=== PATIENT | male | born 1960 | race Caucasian/White ===

== ENCOUNTER 2017-04-10 12:32 | Day surgery (SDC) | payer OTHER ==
[2017-04-10] MEDS ORDERED: LACTATED RINGERS 1,000 ML IV ONE (12:44)
[2017-04-10] MEDS ORDERED: MIDAZOLAM 2 MG/2 ML VIAL IVP ONE (13:43)
[2017-04-10] MEDS ORDERED: fentaNYL 100 MCG/2 ML VIAL IVP ONE (13:43)
[2017-04-10 14:43] VITALS: BP 115/70
--- NOTE | 2017-04-11 14:44 | PROCEDURE REPORT ---
DATE OF SERVICE: 04/10/2017 Physician: Will Rivera MD PROCEDURE PERFORMED: Colonoscopy. ENDOSCOPIST: Will Rivera MD PRIMARY CARE: Julisa Ordonez NP INDICATION: Patient with a diagnosis of a history of polyps, though patient actually denies this on last colonoscopy. He also reports mild anemia. PREMEDICATIONS 1. Fentanyl 100 mcg. 2. Versed 7 mg IV titration. PROCEDURE: After informed consent was obtained, the patient was placed in left lateral decubitus position. The video colonoscope was introduced to the rectum and slowly advanced to cecum. Preparation was good. On slow withdrawal, mucosa was carefully examined. The scope was removed. Patient tolerated the procedure well. BLOOD LOSS: None. COMPLICATIONS: None. FINDINGS 1. Normal colonoscopy to cecum. 2. If in fact the patient does have a history of polyps, then he should have followup colonoscopy in 5 years. Likewise, if he has had anemia, then upper endoscopy might be warranted to rule out an upper tract lesion. cc: Julisa Ordonez NP TD: 04/10/2017 18:49
== END 2017-04-10 12:33 | disposition home or self-care (01) ==
LOC: SDS 12:32
PROVIDERS: ATTEND Internal Medicine Gastroenterology
PROC: 0DJD8ZZ Inspection of Lower Intestinal Tract, Via Natural or Artificial Opening Endoscopic (ICD-10-PCS; principal; 2017-04-10 13:30)
DX: Z12.11 Encounter for screening for malignant neoplasm of colon (principal); Z86.010 Personal history of colon polyps; D64.9 Anemia, unspecified
CPT/HCPCS: 45378; J7120

== ENCOUNTER 2020-03-30 08:04 | Emergency (ER) | payer OTHER ==
[2020-03-30] MEDS ORDERED: BUFFERED LIDOCAINE 10 ML SYRINGE IU ONE (10:12)
[2020-03-30] MEDS ORDERED: BACITRACIN ZINC OINT 1 PACKET TOP STA (10:24)
[2020-03-30] MEDS ORDERED: TETANUS/DIPHTHERIA/PERTUSSIS 0.5 ML SYRINGE IM ONE (10:24)
--- NOTE | 2020-03-30 10:27 | ED Physician Documentation ---
History of Present Illness - Stated complaint Stated Complaint: LT HAND INJ - Chief complaint Chief Complaint: Laceration - History obtained from History obtained from: Patient - Additonal information Additional information: Patient comes emergency department chief complaint of hand injury at work. Patient states he was pushing a large metal cage and that his hand scraped against the wall and this happened. It was his left hand, and patient states it was bleeding quite a lot. He states his boss made him come to the emergency department to get checked out. Patient denies any other complaints at this time. The bleeding is stopped, and patient has full range of motion of his fingers, he states. He denies any numbness or tingling. No other injuries. No other complaints at this time Review of Systems Ten Systems: 10 systems reviewed and negative Constitutional: reports: Reviewed and negative Eyes: reports: Reviewed and negative Ears: reports: Reviewed and negative Nose: reports: Reviewed and negative Throat: reports: Reviewed and negative Cardiac: reports: Reviewed and negative Respiratory: reports: Reviewed and negative GI: reports: Reviewed and negative : reports: Reviewed and negative Skin: reports: Laceration (s), Reviewed and negative Musculoskeletal: reports: Reviewed and negative Neurologic: reports: Reviewed and negative Psychiatric: reports: Reviewed and negative Endocrine: reports: Reviewed and negative Immunocompromised: reports: Reviewed and negative PD PAST MEDICAL HISTORY - Past Medical History Cardiovascular: None Endocrine/Autoimmune: None GI: None : Other HEENT: None Psych: None Musculoskeletal: None Derm: None Other Past Medical History: high PSA labs - Past Surgical History Past Surgical History: No General: Colonoscopy - Present Medications Home Medications: Ambulatory Orders Medication Instructions Recorded Confirmed Alfuzosin HCl [Uroxatral] 10 mg PO DAILY PRN 04/09/17 04/10/17 Cholecalciferol (Vitamin D3) 1,000 unit PO DAILY 04/09/17 04/10/17 [Vitamin D3] Multivitamin [Multivitamins] 1 each PO DAILY 04/09/17 04/10/17 - Allergies Allergies/Adverse Reactions: Allergies Allergy/AdvReac Type Severity Reaction Status Date / Time No Known Drug Allergies Allergy Verified 03/30/20 08:22 - Social History Does the pt smoke?: No Smoking Status: Never smoker Does the pt drink ETOH?: Yes Does the pt have substance abuse?: No - Immunizations Immunizations are current?: Yes PD ED PE NORMAL - Vitals Vital signs reviewed: Yes - General General: Alert and oriented X 3, No acute distress, Well developed/nourished - HEENT HEENT: Atraumatic, PERRL, EOMI, Moist mucous membranes - Neck Neck: Supple, no meningeal sign - Cardiac Cardiac: Strong equal pulses - Respiratory Respiratory: No respiratory distress - Derm Derm: Normal color, Warm and dry, Other (3 cm x 1 cm skin avulsion over the dorsum of left hand. No active bleeding. No foreign body.) - Extremities Extremities: No deformity, No tenderness to palpate, Normal ROM s pain, No edema - Neuro Neuro: Alert and oriented X 3, No motor deficit, No sensory deficit - Psych Psych: Normal mood, Normal affect Results - Vitals Vitals: Vital Signs - 24 hr 03/30/20 08:18 Temperature 36.4 C L Heart Rate 64 Respiratory 16 Rate Blood Pressure 140/74 H O2 Saturation 99 Oxygen O2 Source Room air PD MEDICAL DECISION MAKING - ED course Complexity details: considered differential, d/w patient ED course: I discussed with the patient that most of the wound is nonsuturable, as it is an extremely shallow, superficial skin avulsion. There is a small portion of about 1 cm at the radial end of the wound that could potentially benefit from closure, although the wound would certainly heal nearly as well without closure. The patient has stated he prefers not to have sutures. We have updated his tetanus today. The wound has been dressed with bacitracin. We have discussed the usual indications for return Departure - Departure Disposition: 01 Home, Self Care Clinical Impression: Skin avulsion Condition: Stable Instructions: ED Wound Care Comments: Your tetanus has been updated today.
[2020-03-30 10:43] VITALS: BP 126/80
== END 2020-03-30 10:52 | disposition home or self-care (01) ==
LOC: ED 08:04
DX: S61.402A Unspecified open wound of left hand, initial encounter (principal); W22.01XA Walked into wall, initial encounter; Y93.89 Activity, other specified; Y99.0 Civilian activity done for income or pay; Z23 Encounter for immunization
CPT/HCPCS: 90471; 90715; 99282; 99283; A9270